=== PATIENT | male | born 2000 | race African-American/Black ===

== ENCOUNTER 2022-03-06 10:30 | Emergency (ER) | payer OTHER ==
[2022-03-06] MEDS ORDERED: Lidocaine 1% (PF) 30 ML VIAL ONE (11:13)
[2022-03-06] MEDS ORDERED: Bacitracin 1 PK ONE ×2 (12:47→12:48)
== END 2022-03-06 13:06 | disposition home or self-care (01) ==
LOC: ERS 10:30
DX: S61.210A Laceration without foreign body of right index finger without damage to nail, initial encounter (principal); S61.212A Laceration without foreign body of right middle finger without damage to nail, initial encounter; S61.216A Laceration without foreign body of right little finger without damage to nail, initial encounter; W25.XXXA Contact with sharp glass, initial encounter
CPT/HCPCS: 12002; 90471; J2001